=== PATIENT | female | born 1995 ===

== ENCOUNTER 2018-07-12 03:34 | Emergency (ER) | payer SELFPAY ==
[2018-07-12 04:46] LABS: Absolute Lymphocytes (CBC) 3.6 K/uL (0.7-4.9); Absolute Monocytes 0.5 K/uL (0.1-1.3); Absolute Neutrophil 5.5 K/uL (1.8-8.0); Basophils % 0.6 % (0-1.3); Eosinophils % 3.8 % (0-4.4); Hematocrit 40.8 % (36.0-45.0); Lymphocytes % 35.7 % (15.3-44.8); MPV 12.1 fL (7.6-11.3); Monocytes % 5.3 % (3.3-12.3); RBC Red Blood Cell Count 4.47 M/uL (3.86-4.86)
[2018-07-12 05:42] LABS: ALT/SGPT 18 U/L (12-78); AST/SGOT 15 U/L (15-37); Albumin 4.3 g/dL (3.4-5.0); Alkaline Phosphatase 37 U/L (45-117); BUN Blood Urea Nitrogen 12 mg/dL (7-18); Bicarbonate 25 mmol/L (21-32); Bilirubin Direct < 0.1 mg/dL (0-0.2); Bilirubin Total 0.2 mg/dL (0.2-1.0); Glucose Level 88 mg/dL (74-106); Magnesium 1.8 mg/dL (1.8-2.4); NT PRO-BNP 20 pg/mL (<125); Potassium 4.1 mmol/L (3.5-5.1); Sodium Level 140 mmol/L (136-145); Troponin (Emerg Dept Use Only) < 0.02 ng/mL (0.0-0.045)
[2018-07-12] MEDS ORDERED: KETOROLAC 30 MG/ML INJ ONE (06:04)
--- NOTE | 2018-07-12 06:10 | ER ---
Nurse's Notes [facility] Name: Jhonny Arana Age: 23 yrs Sex: Female : 1995 Arrival Date: 07/12/2018 Time: 03:36 Bed 7 Private MD: Diagnosis: Chest pain, unspecified-wall Presentation: 07/12 03:48 Presenting complaint: Patient states: midsternal CP since last night. Reports the pain aa1 occurs any time she bends or twists and feels like a tearing sensation in the middle of her chest. Transition of care: patient was not received from another setting of care. Onset of symptoms was July 11, 2018. Risk Assessment: Do you want to hurt yourself or someone else? Patient reports no desire to harm self or others. Initial Sepsis Screen: Does the patient meet any 2 criteria? No. Patient's initial sepsis screen is negative. Does the patient have a suspected source of infection? No. Patient's initial sepsis screen is negative. Care prior to arrival: None. 03:48 Method Of Arrival: Ambulatory aa1 03:48 Acuity: MIQUEL 3 aa1 Historical: - Allergies: 03:49 No Known Allergies; aa1 - Home Meds: 03:49 None [Active]; aa1 - PMHx: 03:49 None; aa1 - PSHx: 03:49 ; aa1 - Immunization history:: Flu vaccine is not up to date. - Social history:: Smoking status: Patient/guardian denies using tobacco. - Ebola Screening: : No symptoms or risks identified at this time. - Family history:: not pertinent. Screenin:50 Abuse screen: Denies threats or abuse. Denies injuries from another. Nutritional aa1 screening: No deficits noted. Tuberculosis screening: No symptoms or risk factors identified. Fall Risk None identified. Assessment: 03:50 General: Appears in no apparent distress. uncomfortable, Behavior is calm, cooperative, aa1 appropriate for age. Pain: Complains of pain in mid-sternal area Pain does not radiate. Pain currently is 10 out of 10 on a pain scale. Quality of pain is described as tearing Pain began 1 day ago. Aggravated by repositioning. Neuro: Level of Consciousness is awake, alert, obeys commands, Oriented to person, place, time, situation. Cardiovascular: Reports chest pain, Denies diaphoresis, lightheadedness, nausea, palpitations, shortness of breath, Heart tones S1 S2 present Capillary refill < 3 seconds JVD is absent Patient's skin is warm and dry. Rhythm is regular Chest pain is described as severe, quality is tearing is located in substernal area. Respiratory: Airway is patent Respiratory effort is even, unlabored, Respiratory pattern is regular, symmetrical. GI: No signs and/or symptoms were reported involving the gastrointestinal system. : No signs and/or symptoms were reported regarding the genitourinary system. EENT: No signs and/or symptoms were reported regarding the EENT system. Derm: Skin is intact, is healthy with good turgor, Skin is pink, warm \T\ dry. Musculoskeletal: Circulation, motion, and sensation intact. Capillary refill < 3 seconds. 05:00 Reassessment: Patient appears in no apparent distress at this time. Patient and/or aa1 family updated on plan of care and expected duration. Pain level reassessed. Patient is alert, oriented x 3, equal unlabored respirations, skin warm/dry/pink. Awaiting lab results. 06:22 Reassessment: Patient appears in no apparent distress at this time. Patient is alert, aa1 oriented x 3, equal unlabored respirations, skin warm/dry/pink. Discussed d/c \T\ f/u instructions with pt; denies questions or concerns at this time. Vital Signs: 03:49 BP 129 / 94; Pulse 103; Resp 18; Temp 98.3; Pulse Ox 99% on R/A; Weight 72.57 kg; aa1 Height 5 ft. 7 in. (170.18 cm); Pain 10/10; 05:10 BP 125 / 90; Pulse 88; Resp 18; Pulse Ox 99% on R/A; aa1 06:22 BP 117 / 85; Pulse 77; Resp 16; Pulse Ox 99% on R/A; Pain 9/10; aa1 03:49 Body Mass Index 25.06 (72.57 kg, 170.18 cm) aa1 ED Course: 03:36 Patient arrived in ED. ag3 03:39 Mariela Haynes, RN is Primary Nurse. aa1 03:49 Triage completed. aa1 03:49 Arm band placed on right wrist. aa1 03:50 Patient has correct armband on for positive identification. Placed in gown. Bed in low aa1 position. Call light in reach. Pulse ox on. NIBP on. Warm blanket given. 03:50 Patient maintains SpO2 saturation greater than 95% on room air. aa1 03:55 Eugene Ramirez MD is Attending Physician. maricarmen 04:14 X-ray completed. Portable x-ray completed in exam room. Patient tolerated procedure kw well. 04:16 XRAY Chest (1 view) In Process Unspecified. EDMS 04:29 Initial lab(s) drawn, by me, sent to lab. Inserted saline lock: 20 gauge in right aa1 antecubital area, using aseptic technique. Blood collected. 06:22 No provider procedures requiring assistance completed. IV discontinued, intact, aa1 bleeding controlled, No redness/swelling at site. Pressure dressing applied. Administered Medications: 05:56 Drug: TORadol 30 mg Route: IVP; Site: right antecubital; aa1 06:22 Follow up: Response: No adverse reaction; Pain is unchanged, physician notified aa1 06:22 Drug: [place] 10 mg-325 mg 1 tabs Route: PO; aa1 06:22 Follow up: Response: Medication administered at discharge. aa1 Outcome: 06:09 Discharge ordered by . [facility] 06:22 Discharged to home ambulatory, with family. aa1 06:22 Condition: good 06:22 Discharge instructions given to patient, Instructed on discharge instructions, follow up and referral plans. medication usage, Demonstrated understanding of instructions, follow-up care, medications, Prescriptions given X 2. 06:26 Patient left the ED. aa1 Signatures: Dispatcher [employer] EDNY Mariela Haynes, ANNA RN aa1 Eugene Ramirez MD MD cha Whitley, Kimberlee kw Gomez, Alice ag3
--- NOTE | 2018-07-12 06:10 | EDPHYS ---
Physician Documentation [facility] Name: Jhonny Arana Age: 23 yrs Sex: Female : 1995 Arrival Date: 07/12/2018 Time: 03:36 Bed 7 Private MD: ED Physician Eugene Ramirez HPI: 07/12 04:00 This 23 yrs old Black Female presents to ER via Ambulatory with complaints of Chest maricarmen Pain. 04:00 The patient or guardian reports chest pain that is located primarily in the anterior maricarmen chest wall. The pain does not radiate. Associated signs and symptoms: The patient has no apparent associated signs or symptoms. The chest pain is described as aching. Modifying factors: The symptoms are alleviated by remaining still, the symptoms are aggravated by activity, movement, palpation of area. Severity of pain: At its worst the pain was mild moderate in the emergency department the pain is unchanged. The patient has experienced similar episodes in the past, a few times. Historical: - Allergies: 03:49 No Known Allergies; aa1 - Home Meds: 03:49 None [Active]; aa1 - PMHx: 03:49 None; aa1 - PSHx: 03:49 ; aa1 - Immunization history:: Flu vaccine is not up to date. - Social history:: Smoking status: Patient/guardian denies using tobacco. - Ebola Screening: : No symptoms or risks identified at this time. - Family history:: not pertinent. ROS: 04:01 Constitutional: Negative for fever, chills, and weight loss, Eyes: Negative for injury, maricarmen pain, redness, and discharge, ENT: Negative for injury, pain, and discharge, Neck: Negative for injury, pain, and swelling, Respiratory: Negative for shortness of breath, cough, wheezing, and pleuritic chest pain, Abdomen/GI: Negative for abdominal pain, nausea, vomiting, diarrhea, and constipation, Back: Negative for injury and pain, : Negative for injury, bleeding, discharge, and swelling, MS/Extremity: Negative for injury and deformity, Skin: Negative for injury, rash, and discoloration, Neuro: Negative for headache, weakness, numbness, tingling, and seizure. 04:01 Cardiovascular: Positive for chest pain, with movement, of the chest. Exam: 04:01 Constitutional: This is a well developed, well nourished patient who is awake, alert, maricarmen and in no acute distress. Head/Face: Normocephalic, atraumatic. Eyes: Pupils equal round and reactive to light, extra-ocular motions intact. Lids and lashes normal. Conjunctiva and sclera are non-icteric and not injected. Cornea within normal limits. Periorbital areas with no swelling, redness, or edema. ENT: Nares patent. No nasal discharge, no septal abnormalities noted. Tympanic membranes are normal and external auditory canals are clear. Oropharynx with no redness, swelling, or masses, exudates, or evidence of obstruction, uvula midline. Mucous membranes moist. Neck: Trachea midline, no thyromegaly or masses palpated, and no cervical lymphadenopathy. Supple, full range of motion without nuchal rigidity, or vertebral point tenderness. No Meningismus. Cardiovascular: Regular rate and rhythm with a normal S1 and S2. No gallops, murmurs, or rubs. Normal PMI, no JVD. No pulse deficits. Respiratory: Lungs have equal breath sounds bilaterally, clear to auscultation and percussion. No rales, rhonchi or wheezes noted. No increased work of breathing, no retractions or nasal flaring. Abdomen/GI: Soft, non-tender, with normal bowel sounds. No distension or tympany. No guarding or rebound. No evidence of tenderness throughout. Back: No spinal tenderness. No costovertebral tenderness. Full range of motion. Skin: Warm, dry with normal turgor. Normal color with no rashes, no lesions, and no evidence of cellulitis. MS/ Extremity: Pulses equal, no cyanosis. Neurovascular intact. Full, normal range of motion. Neuro: Awake and alert, GCS 15, oriented to person, place, time, and situation. Cranial nerves II-XII grossly intact. Motor strength 5/5 in all extremities. Sensory grossly intact. Cerebellar exam normal. Normal gait. Psych: Awake, alert, with orientation to person, place and time. Behavior, mood, and affect are within normal limits. 04:01 Chest/axilla: Inspection: normal, Palpation: tenderness, that is mild, of the anterior aspect of right upper chest and anterior aspect of left upper chest, Axilla: are normal, no acute changes, Breasts: are normal, no acute changes, Lymph nodes: lymphadenopathy is not appreciated. 04:08 Musculoskeletal/extremity: DVT Exam: No signs of deep vein thrombosis. no pain, no maricarmen swelling, no tenderness, negative Homans' sign noted on exam, no appreciated bluish discoloration, no erythema, no increased warmth. Vital Signs: 03:49 BP 129 / 94; Pulse 103; Resp 18; Temp 98.3; Pulse Ox 99% on R/A; Weight 72.57 kg; aa1 Height 5 ft. 7 in. (170.18 cm); Pain 10/10; 05:10 BP 125 / 90; Pulse 88; Resp 18; Pulse Ox 99% on R/A; aa1 06:22 BP 117 / 85; Pulse 77; Resp 16; Pulse Ox 99% on R/A; Pain 9/10; aa1 03:49 Body Mass Index 25.06 (72.57 kg, 170.18 cm) [facility] MDM: 03:55 Patient medically screened. [facility] 04:03 Data reviewed: vital signs, nurses notes, lab test result(s), EKG, radiologic studies, [facility] plain films. 07/12 04:00 Order name: Basic Metabolic Panel; Complete Time: 05:43 [facility] 07/12 04:00 Order name: CBC with Diff; Complete Time: 05:40 [facility] 07/12 04:00 Order name: LFT's; Complete Time: 05:43 [facility] 07/12 04:00 Order name: Magnesium; Complete Time: 05:43 [facility] 07/12 04:00 Order name: NT PRO-BNP; Complete Time: 05:43 [facility] 07/12 04:00 Order name: Troponin (emerg Dept Use Only); Complete Time: 05:43 [facility] 07/12 04:00 Order name: XRAY Chest (1 view) [facility] 07/12 04:00 Order name: EKG; Complete Time: 04:01 [facility] 07/12 04:00 Order name: Urine Culture [facility] 07/12 04:04 Order name: D-Dimer; Complete Time: 05:40 [facility] 07/12 06:05 Order name: Urine Dipstick--Ancillary (enter results) [facility] 07/12 06:05 Order name: Urine --Ancillary (enter results) [facility] 07/12 04:00 Order name: Cardiac monitoring; Complete Time: 04:12 [facility] 07/12 04:00 Order name: EKG - Nurse/Tech; Complete Time: 04:28 [facility] 07/12 04:00 Order name: IV Saline Lock; Complete Time: 05:10 [facility] 07/12 04:00 Order name: Labs collected and sent; Complete Time: 04:12 [facility] 07/12 04:00 Order name: O2 Per Protocol; Complete Time: 04:12 [facility] 07/12 04:00 Order name: O2 Sat Monitoring; Complete Time: 04:12 [facility] 07/12 04:00 Order name: Urine Dipstick-Ancillary (obtain specimen); Complete Time: 05:56 [facility] 07/12 04:00 Order name: Urine Test (obtain specimen); Complete Time: 05:56 [facility] Administered Medications: 05:56 Drug: TORadol 30 mg Route: IVP; Site: right antecubital; aa 06:22 Follow up: Response: No adverse reaction; Pain is unchanged, physician notified aa 06:22 Drug: [place] 10 mg-325 mg 1 tabs Route: PO; aa1 06:22 Follow up: Response: Medication administered at discharge. aa1 Disposition: 07/12/18 06:09 Discharged to Home. Impression: Chest pain, unspecified - wall. - Condition is Stable. - Discharge Instructions: Nonspecific Chest Pain, Chest Wall Pain, Chest Wall Pain, [id number], Nonspecific Chest Pain, [id number]. - Prescriptions for Motrin IB 200 mg Oral Tablet - take 2 tablet by ORAL route every 6 hours As needed as needed with food; 30 tablet. Tylenol- Codeine #3 300-30 mg Oral Tablet - take 2 tablets by ORAL route every 6 hours As needed; 26 tablet. - Medication Reconciliation Form, Thank You Letter, Antibiotic Education, Prescription Opioid Use form. - Follow up: Private Physician; When: 2 - 3 days; Reason: Recheck today's complaints, Continuance of care, Re-evaluation by your physician. - Problem is new. - Symptoms have improved. Signatures: Dispatcher [employer] Mariela Burgos RN RN aa1 Eugene Ramirez MD MD cha Corrections: (The following items were deleted from the chart) 06:26 06:09 07/12/2018 06:09 Discharged to Home. Impression: Chest pain, unspecified - wall. aa1 Condition is Stable. Discharge Instructions: Nonspecific Chest Pain, Chest Wall Pain, Chest Wall Pain, [id number], Nonspecific Chest Pain, [id number]. Prescriptions for Motrin IB 200 mg Oral Tablet - take 2 tablet by ORAL route every 6 hours As needed as needed with food; 30 tablet. and Forms are Medication Reconciliation Form, Thank You Letter, Antibiotic Education, Prescription Opioid Use. Follow up: Private Physician; When: 2 - 3 days; Reason: Recheck today's complaints, Continuance of care, Re-evaluation by your physician. Problem is new. Symptoms have improved. maricarmen
[2018-07-12] MEDS ORDERED: HYDROCODONE/APAP 10/325 TAB ONE (06:30)
[2018-07-12 06:51] LABS: Urine Blood NEGATIVE (NEG); Urine Glucose NEGATIVE (NEG); Urine Protein NEGATIVE (NEG); Urine Specific Gravity 1.025 (1.005-1.030); Urine pH 5.5 (5.0-7.0)
--- NOTE | 2018-07-12 09:49 | EKG ---
Test Date: 2018-07-12 Test Time: 04:21:57 Underwear Welter: ASHLEY MEASUREMENT RESULTS: Intervals: Rate: 92 TN: 222 QRSD: 78 QT: 340 QTc: 420 [place]: P: 61 TN: 222 QRS: 52 T: 23 INTERPRETIVE STATEMENTS: Sinus rhythm with 1st degree AV block Possible Left atrial enlargement Abnormal ECG No previous ECG available for comparison Electronically Signed On 07-12-18 08:31:47 NEEDLE LOOM WEAVER by Geoffrey Puckett
--- NOTE | 2018-07-12 09:50 | RAD REPORT ---
EXAM DESCRIPTION: RAD - Chest Single View - 07/12/2018 4:17 am CLINICAL HISTORY: Chest pain COMPARISON: None. TECHNIQUE: AP portable chest image was obtained 0415 hours . FINDINGS: Lungs are clear. Heart and vasculature are normal. No measurable pleural effusion and no p neumothorax. No acute bony abnormality seen. No acute aortic findings suspected. IMPRESSION: No acute cardiopulmonary process.
== END 2018-07-12 06:26 | disposition home or self-care (01) ==
LOC: ER 03:34
DX: R07.89 Other chest pain (principal)
CPT/HCPCS: 36415; 71045; 80048; 80076; 81003; 81025; 83735; 83880; 84484; 85025; 85379; 87086; 87088; 93005; 96374; 99284